=== PATIENT | female | born 1985 | race Caucasian/White ===

== ENCOUNTER 2017-05-10 19:00 | Emergency (ER) | payer SELFPAY ==
[~2017-05-10] VITALS: Ht 170.2 cm; Wt 76.2 kg
[~2017-05-10 19:00] MED LIST: HYDR-3326 PO; METH4TAB3 PO; OMEP40CA37 PO; TRAM50TA2 PO
--- NOTE | 2017-05-10 19:15 | NUR ---
DR. MURDOCK AT BEDSIDE FOR EVAL.
[2017-05-10] MEDS ORDERED: HYDROMORPHONE 1 MG/1 ML DISP.SYRIN IM ONE (19:30)
[2017-05-10] MEDS ORDERED: ONDANSETRON ODT 4 MG TAB.RAPDIS SL ONE (19:30)
[2017-05-10 19:34] VITALS: BP 111/74
--- NOTE | 2017-05-10 19:34 | NUR ---
Patient discharged to home in stable conditon. Written and verbal after care instructions given. Patient verbalizes understanding of instructions. PATIENT LEFT WITH STABLE GAIT.
[2017-05-10] MEDS ORDERED: ONDANSETRON ODT 4 MG TAB.RAPDIS ONE (19:37)
[2017-05-10] MEDS ORDERED: HYDROMORPHONE 2 MG/1 ML DISP.SYRIN ONE (19:37)
== END 2017-05-10 19:35 | disposition home or self-care (01) ==
LOC: ER 19:05
DX: M54.42 Lumbago with sciatica, left side (principal); Z88.6 Allergy status to analgesic agent
CPT/HCPCS: A4663; J1170; Q0162

== ENCOUNTER 2017-12-19 04:24 | Emergency (ER) | payer SELFPAY ==
[~2017-12-19] VITALS: Ht 170.2 cm; Wt 76.2 kg
[2017-12-19] MEDS ORDERED: ONDANSETRON ODT 4 MG TAB.RAPDIS SL ONE (05:15)
[2017-12-19] MEDS ORDERED: ONDANSETRON ODT 4 MG TAB.RAPDIS ONE (05:19)
--- NOTE | 2017-12-19 05:23 | NUR ---
Patient discharged to home in stable conditon. Written and verbal after care instructions given. Patient verbalizes understanding of instructions. Ambulated from ER with stable gait. All belongings with patient.
[2017-12-19 05:24] VITALS: BP 110/54
== END 2017-12-19 05:26 | disposition home or self-care (01) ==
LOC: ER 04:34
DX: M54.31 Sciatica, right side (principal); G89.29 Other chronic pain; M54.5 Low back pain; Z88.5 Allergy status to narcotic agent; Z79.891 Long term (current) use of opiate analgesic; Z79.899 Other long term (current) drug therapy
CPT/HCPCS: A4663; Q0162

== ENCOUNTER 2017-12-23 20:22 | Emergency (ER) | payer SELFPAY ==
[~2017-12-23] VITALS: Ht 170.2 cm; Wt 76.2 kg
--- NOTE | 2017-12-23 20:45 | NUR ---
Patient came to ER with steady gait c/o of lower back pain.
--- NOTE | 2017-12-23 20:50 | NUR ---
Dr. Duarte at bedside for MSE.
[2017-12-23] MEDS ORDERED: HYDROMORPHONE 1 MG/1 ML DISP.SYRIN IM ONE (21:00)
[2017-12-23] MEDS ORDERED: ONDANSETRON ODT 4 MG TAB.RAPDIS SL ONE (21:00)
[2017-12-23] MEDS ORDERED: HYDROMORPHONE 2 MG/1 ML DISP.SYRIN ONE (21:07)
[2017-12-23] MEDS ORDERED: ONDANSETRON ODT 4 MG TAB.RAPDIS ONE (21:08)
--- NOTE | 2017-12-23 21:15 | NUR ---
Patient discharged to home in stable conditon. Written and verbal after care instructions given. Patient verbalizes understanding of instructions. Patient ambulated out of ER with steady gait, no acute signs of distress, VSS, all belongings taken.
[2017-12-23 21:30] VITALS: BP 115/84
== END 2017-12-23 21:20 | disposition home or self-care (01) ==
LOC: ER 20:26
DX: M54.32 Sciatica, left side (principal); Z88.5 Allergy status to narcotic agent; Z79.891 Long term (current) use of opiate analgesic; Z79.899 Other long term (current) drug therapy
CPT/HCPCS: A4663; J1170; Q0162